=== PATIENT | male | born 1950 | race Caucasian/White ===

== ENCOUNTER 2024-06-30 08:40 | Inpatient (IN) | payer MEDICARE, SELFPAY ==
[2024-06-23 08:41] VITALS: BMI 23.2
[2024-06-30] VITALS (12 sets, daily range): BP systolic 97–168; BP diastolic 53–89; PULSE 65–81; RESP 11–26; TEMP 36.2–36.9; O2SAT 97–100; BMI 22.0
--- NOTE | 2024-06-30 06:00 | DI.RAD.S_ITS ---
PROCEDURE: XR KNEE RT 1TO2V INDICATIONS: TKA TECHNIQUE: 2 view(s) of the knee acquired. COMPARISON: [facility] [place], CR, XR KNEE 4+ VIEWS RIGHT, 02/27/2024, 10:37. FINDINGS: Bones: Patient is status post knee joint arthroplasty. Hardware components are in expected positions. Visualized bony structures are intact. Soft tissues: Overlying postoperative changes are noted. IMPRESSION: Expected immediate postoperative appearance of right TKA. Dictated by: Jayce Olsen [facility] Interpreted: Min Oropeza MD on 07/01/2024 at 9:50 Approved by: Min Oropeza M.D. on 07/08/2024 at 12:56
[2024-06-30] MEDS: ACETAMINOPHEN 325 MG TABLET 975 MG PO (09:29)
[2024-06-30] MEDS: CELECOXIB 200 MG CAPSULE PO (09:29)
[2024-06-30] MEDS: LACTATED RINGERS 1,000 ML 42 ML IV ×2 (09:30→15:40)
[2024-06-30] MEDS: VANCOMYCIN 1,000 MG/200 ML PIGGYBACK 200 MG IV (10:26)
--- NOTE | 2024-06-30 11:20 | PM.PREOP ---
Pre-operative Note Interval Note History & Physical reviewed/Exam performed by Physician: Yes Changes to H&P: No
--- NOTE | 2024-06-30 11:20 | PM.OP.1 ---
Operative Date/Time/Diagnoses Date of procedure: 06/30/24 Time of procedure: 11:45 Pre-op diagnosis: Right knee medial compartment loosening and progressive osteoarthritis of the lateral compartment of the right knee and patellofemoral joint Post-op diagnosis: same Procedure & Clinicians Procedure: Right total knee revision unicompartmental total knee arthroplasty Same procedure as scheduled: Yes Indications: The patient has a history of a right knee medial compartment arthroplasty. He notes it worked well for a while but now he is got progressive osteoarthritic symptoms in the lateral compartment. He did not have wound healing problems. Currently he Has progressively worsening right knee pain with radiographic changes consistent with arthritis and possible early loosening of his medial unicompartment replacement. Non-operative management has failed and the patient has requested total knee replacement. The risks, benefits and alternatives to surgery were discussed with the patient prior to proceeding. Risks discussed included, but were not limited to, failure to relieve pain, stiffness, infection, nerve damage, deep venous thrombosis, pulmonary embolism, stroke, coma, heart attack, permanent paralysis and , as well as the potential need for eventual revision of the prosthetic. Surgeon: Nette Pacheco Supervisor Intermediates: Fahad Alarcon Anesthesia Type: General, Spinal and Peripheral nerve block Operative Notes Findings: Severe right knee OA, some polyethylene wear, no evidence of infection, mild femoral loosening, [id number] synovitis Closure Type: primary Specimen(s): other (PCR and 3 intraoperative cultures tibia, femur, and synovium) Prosthetic devices, grafts, tissues, transplants, or devices: [employer] journey BCS 2 size 5 femur, size 4 tibia, +9 poly, 35 oval patella Estimated Blood Loss (mL): 250 Blood products transfused: none Tourniquet time (min): 105 Procedure in detail: The patient was seen in the pre-operative area, where the patient identified the right knee as the operative site and this was marked with my initials. The patient received pre-operative antibiotics, and was taken to the operating room and placed on the operative table in the supine position. After satisfactory anesthesia, a bobbin handler out was performed. The right leg was encircled with a tourniquet about the proximal thigh, and the leg was prepared from the toes to the tourniquet with ChloroPrep in the usual fashion and draped through sterile drapes. The leg was elevated and exsanguinated with Eschmark bandage and the tourniquet inflated to [250] mmHg pressure. A PA was used during the procedure and was essential for intraoperative retraction and safe implantation of the components. I also sent cultures and PCR from the synovium, under the tibia, and under the femoral component. The knee was approached through an approximately 18 cm incision centered over the patella and carried into the knee through a medial parapatellar arthrotomy. Portion of the medial and lateral meniscus was resected. Soft tissue was carefully mobilized around the patella the patella was measured with a caliper. Bone was resected from the patella and the patellar height was reconstituted with up an appropriate sized patellar component. A cover was then placed on the patella. A small amount of additional medial scar tissue and lateral meniscus was resected. The unicompartment knee replacement was mobilized and loosened some of the combination of a saw and multiple osteotomes. Cori navigation pins were then placed in the femur and the tibia. The knee was meticulously mapped and plan was taken for revision of the unicompartmental total knee arthroplasty. We specifically placed the patient through a range of motion and stressed the knee in order to optimize range of motion and stability. Once the plan had been completely developed the unicompartment tibial and femoral components were removed. Unfortunately when the components were being removed the tibial tracker loosened. We attempted to replace the tibial tracker but were unsuccessful in getting it adequate. We subsequently used our plan for the distal femoral resection. There was minimal bone loss. The Cori bur was used to resect the lateral residual bone some intercondylar bone and I specifically checked the medial side there was not a significant defect in the medial femoral condyle. On the lateral side, It looked like an appropriate distal femoral cut and the cut was made without difficulty. The rotation was assessed and the appropriate size femoral guide was placed on the distal femur and finishing cuts were made. There was no evidence of notching. The anterior, posterior and chamfer cuts were then made. The posterior osteophytes and soft tissues were then removed. The posterior capsule was injected with part of a mixture of 60 ml 0.25% Marcaine mixed with 20 ml Exparel for post operative pain control. The remainder of this mixture was injected into the capsule and subcutaneous tissues during cement curing. A clean-up cut was made across the tibia. I used manual instruments for the tibial cut. I meticulously checked the surface of the bone there was a minor gap in the medial aspect but I did not think I needed to resect additional tibial bone. The rotation was assessed. The patient was placed in extension residual medial and lateral meniscus as well as any residual bone was carefully resected. [No] additional tibia was resected. Hemostasis was achieved especially posteriorly. Additional local was injected into the posterior capsule. The extension gap was assessed. The femoral component was trial was placed and the notch was finished. Trial tibial and femoral components were then placed and the knee placed through a range of motion. Range of motion was [0-130], with good stability throughout the range. I put the tourniquet up for 1 hour initially and then put the tourniquet down for about 55 minutes and then reinflated it for about 40 minutes. The trials were then removed, and the tibia was finished. Short stem was placed on the tibia after carefully reaming the canal in order to optimize stability of the tibial component. The bone was prepared with pulsatile lavage, and dried with a sponge. Cement was applied and the final prosthetics placed. Excess cement was removed during and after cement curing. A brief Betadine soak was performed. After confirming there was no extruded cement posteriorly, the final tibial insert was placed. The knee was copiously irrigated and the tourniquet deflated. Hemostasis was obtained with the [Aquamantys system]. A drain was placed and brought out superolaterally. The capsule was closed with interrupted # 1 Vicryl suture. The subcutaneous layer was closed with barbed sutures, and the skin with a running 3-0 V-Lock suture and Surgical glue. An Aquacel Ag dressing was applied and the patient was taken to recovery having tolerated the procedure well. Complications: none Post-operative Condition: stable Disposition: Acute Care Plan for aftercare: The patient will be maintained on a standard total knee replacement protocol with weight bearing as tolerated. The patient will receive aspirin and sequential compression devices for DVT prophylaxis. The patient will be discharged home when safe for the home environment.
[2024-06-30] MEDS: CEFAZOLIN 2 GM/100 ML PREMIX 100 ML IV ×2 (11:47→19:59)
[2024-06-30] MEDS: TRANEXAMIC ACID 1,000 MG VIAL 2000 MG INJ ×2 (11:51→14:43)
--- NOTE | 2024-06-30 12:22 | SUR.OPER ---
Supine on padded OR bed. Pillow under head, arms secured on padded armboards <90 degree abduction. Safety belt across torso. Non-operative leg secured with tape over blanket over lower leg. Operative leg secured in DeMayo/Luis Alberto/Nathe positioner. Foam padded brace at thigh of operative leg.
[2024-06-30] MEDS: BUPIVACAINE 0.25% (PF) 60 ML, EPINEPHrine 0.3 MG INJ (14:40)
[2024-06-30] MEDS: BUPIVACAINE LIPOSOME 266 MG/20 ML VIAL INJ (14:40)
[2024-06-30] MEDS: hydrOXYzine HCL 25 MG TABLET PO (15:36)
[2024-06-30] MEDS: OXYCODONE IR 5 MG TABLET PO ×2 (15:37→16:09)
--- NOTE | 2024-06-30 16:01 | SUR.PHASEI ---
1551 Pt transfered to Room 204 by Lewis CALLAHAN with 2 white belongings bags.
[2024-06-30] MEDS: LACTATED RINGERS 1,000 ML 100 ML IV ×2 (16:10→22:37)
[2024-06-30] MEDS: ACETAMINOPHEN 325 MG TABLET 650 MG PO ×2 (16:10→22:37)
--- NOTE | 2024-06-30 16:12 | OT.IPNOTE ---
Pt just arrived to the floor from surgery, to check on pt tomorrow for OT eval.
[2024-06-30] MEDS: IBUPROFEN 400 MG TABLET PO ×2 (17:06→22:43)
--- NOTE | 2024-06-30 17:22 | PC.NURSE ---
Patient arrived to room 204 at 1600. He is A&OX4, VSS, afebrile on RA. R Knee with VASILE wrap c/d/i. He states full sensation to BLE's. He reports pain level 7/10 this evening, medicated with PRN PO medications. He tolerates dinner well w/o n/v. IVF LR at 100ml/hr, SCD's, RT teaching IS use, admission assessment completed, bed alarm on, call light in reach, urinal at bedside,POST OP VS, continuous monitoring and continuous pulse ox. He is due to void at 2000 this evening.
[2024-06-30] MEDS: ASPIRIN EC 81 MG TABLET PO (20:06)
[2024-06-30] MEDS: DOCUSATE 100 MG CAPSULE PO (20:06)
[2024-07-01 01:00] VITALS: BP 139/80; PULSE 67; RESP 16; TEMP 36.3; O2SAT 97
[2024-07-01] MEDS: OXYCODONE IR 5 MG TABLET PO (02:29)
[2024-07-01] MEDS: CEFAZOLIN 2 GM/100 ML PREMIX 100 ML IV (04:09)
[2024-07-01] MEDS: ACETAMINOPHEN 325 MG TABLET 650 MG PO (06:22)
[2024-07-01] MEDS: IBUPROFEN 400 MG TABLET PO (06:22)
[2024-07-01 06:24] LABS: Hematocrit 34.9 % (41-53); Hemoglobin 12.2 g/dL (13.5-17.5)
--- NOTE | 2024-07-01 07:00 | P.DS_ITS ---
History of Present Illness History of Present Illness Date Patient Seen: 07/01/24 Time Patient Seen: 07:00 Chief complaint: Right TKA Narrative: Operative Date/Time/Diagnoses Date of procedure: 06/30/24 Time of procedure: 11:45 Pre-op diagnosis: Right knee medial compartment loosening and progressive osteoarthritis of the lateral compartment of the right knee and patellofemoral joint Post-op diagnosis: same Procedure & Clinicians Procedure: Right total knee revision unicompartmental total knee arthroplasty Same procedure as scheduled: Yes Indications: The patient has a history of a right knee medial compartment arthroplasty. He notes it worked well for a while but now he is got progressive osteoarthritic symptoms in the lateral compartment. He did not have wound healing problems. Currently he Has progressively worsening right knee pain with radiographic changes consistent with arthritis and possible early loosening of his medial unicompartment replacement. Non-operative management has failed and the patient has requested total knee replacement. The risks, benefits and alternatives to surgery were discussed with the patient prior to proceeding. Risks discussed included, but were not limited to, failure to relieve pain, stiffness, infection, nerve damage, deep venous thrombosis, pulmonary embolism, stroke, coma, heart attack, permanent paralysis and , as well as the potential need for eventual revision of the prosthetic. Surgeon: Nette Pacheco Extracorporeal Circulation Specialist: Fahad Alarcon Anesthesia Type: General, Spinal and Peripheral nerve block Operative Notes Findings: Severe right knee OA, some polyethylene wear, no evidence of infection, mild femoral loosening, [id number]-nj-zurreazk synovitis Closure Type: primary Specimen(s): other (PCR and 3 intraoperative cultures tibia, femur, and synovium) Prosthetic devices, grafts, tissues, transplants, or devices: [employer] BCS 2 size 5 femur, size 4 tibia, +9 poly, 35 oval patella Estimated Blood Loss (mL): 250 Blood products transfused: none Tourniquet time (min): 105 Discharge Providers Provider Date of admission: 06/30/24 08:40 Discharge Date: 07/01/24 Primary care physician: Shirley Castaneda PA-C Consults: 06/23/24 09:28 Consult to Anesthesiology Routine Comment: Consulting Provider: Anesthesiologist Reason for consultation: Surgeon request - cardiac. 06/30/24 06:00 Consult to Anesthesiology Routine Comment: Consulting Provider: Anesthesiologist Reason for consultation: Regional block for post operative pain control 06/30/24 15:49 Consult to Discharge Planning Routine Comment: Consult to Occupational Therapy Evaluate & Treat Comment: Physician Instructions: Evaluate and treat Consult to Physical Therapy Evaluate & Treat Comment: Physician Instructions: postop TKA protocol Discharge provider: Aliyah Haskins PA-C Summary Hospital Course Discharge Diagnosis: Right knee medial compartment loosening and progressive osteoarthritis of the lateral compartment of the right knee and patellofemoral joint, s/p Right total knee revision unicompartmental total knee arthroplasty Hospital Course: Mr Man'james hospital course was unremarkable. On the morning of POD# 1, he was feeling well and wanted to go home. He had not yet worked w/ PT but he had been OOB multiple times. He was eating and voiding without difficulty and his pain was well-controlled with oral medication. Exam Vital Signs (past 8 hours): - 07/01/24 01:00 Temperature 97.4 F L Pulse Rate 67 Respiratory Rate 16 Blood Pressure 139/80 Pulse Oximetry 97 Oxygen Flow Rate 0 Oxygen Delivery Method Room Air Oxygen Flow Rate 0 Narrative Exam Narrative: 5/5 strength in hip flexors, quadriceps, hamstrings, PF, DF, EHL on right. Sensation to light touch intact throughout RLE. Calf soft and compressible. VASILE over Aquacel is CDI. Objective Labs 07/01/24 06:00 Labs: Laboratory Results - last 24 hr 07/01/24 06:00 Hgb 12.2 L Hct 34.9 L PFSH Medical History (Updated 06/22/24 @ 14:52 by Georgiana Vizcarra RN) Normal cardiac ejection fraction (10/2020) Aortic aneurysm (10/2020) Esophageal dilatation (11/14/21) PVCs (premature ventricular contractions) Palpitations HTN (hypertension) GERD (gastroesophageal reflux disease) Elevated PSA Asthma Surgical History (Updated 06/23/24 @ 09:29 by Georgiana Vizcarra, RN) Status post right partial knee replacement S/P arthroscopic partial medial meniscectomy Social History household members: spouse Smoking Status: Current every day smoker alcohol intake: current Discharge Assessment & Plan Assessment and Plan Assessment: Right knee medial compartment loosening and progressive osteoarthritis of the lateral compartment of the right knee and patellofemoral joint, s/p Right total knee revision unicompartmental total knee arthroplasty Plan of Treatment: Discharge home, multimodal pain control, ASA 81mg BID for VTE prophylaxis, outpt PT, f/u in office as scheduled. Discharge Plan Discharge Plan Patient Disposition: Home Discharge orders & Medications Prescriptions: Continued lisinopril 10 mg Tablet 10 mg PO DAILY metoprolol succinate 25 mg Tablet Extended Release 24 Hr 25 mg PO DAILY albuterol sulfate 90 mcg/actuation Hfa Aerosol Inhaler 2 puff INHALATION Q4H PRN (Reason: asthma) cholecalciferol (vitamin D3) [Vitamin D3] 125 mcg (5,000 unit) Tablet 125 mcg PO DAILY apple cider vinegar 600 mg Capsule 1,200 mg PO DAILY ibuprofen 200 mg Tablet 400 mg PO QPM PRN (Reason: pain and swelling.) Follow up/Referrals: Shirley Castaneda PA-C [Primary Care Provider] - Nette Pacheco MD [Physician] - 07/10/24 11:00 am (Appt:07/10 @ 11:00with Magda best @ [facility] [place] [facility] Diet/Activity/Treatments Diet: Diet as Tolerated Activity: Weightbearing as tolerated. Walk frequently! Cold/Heat Therapy: Ice to knee as needed for pain. Skin/Wound/Dressing Care Report to your healthcare provider any signs of infection, such as:: chills, fever, night sweats, unusual drainage and unusual redness Dressing: May remove VASILE wrap and shower on 07/03/2024. Leave dressing in place until follow up in office. No bathing or otherwise soaking incision. Call the office if the dressing becomes saturated inside. Visit Report/Discharge Packet Instructions: DI for Knee Replacement, DI for Prescription Opioid Use Stand Alone Forms: Patient Portal/API, Stroke Signs & Symptoms, Surgery Discharge Discharge Data Primary Care Provider: Shirley Castaneda
[2024-07-01 08:00] VITALS: BP 153/84; PULSE 67; RESP 16; TEMP 36.8; O2SAT 99
[2024-07-01 09:02] VITALS: BP 153/84
[2024-07-01] MEDS: lisinopriL 10 MG TABLET PO (09:02)
[2024-07-01] MEDS: CHOLECALCIFEROL (VITAMIN D3) 5,000 UNIT TABLET 5000 UNIT PO (09:02)
[2024-07-01 09:03] VITALS: BP 153/84
[2024-07-01] MEDS: METOPROLOL ER 25 MG TABLET PO (09:03)
[2024-07-01] MEDS: SODIUM CHLORIDE 0.9% FLUSH 10 ML IV (09:03)
[2024-07-01] MEDS: DOCUSATE 100 MG CAPSULE PO (09:03)
[2024-07-01] MEDS: ASPIRIN EC 81 MG TABLET PO (09:03)
--- NOTE | 2024-07-01 09:23 | OT.IP.EVAL ---
Current Diagnoses Unilateral primary osteoarthritis, right knee (06/30/24) Presence of right artificial knee joint (06/30/24) Surgery Performed Operation Date: 06/30/24 10:45 Actual Procedures p Total Knee Arthroplasty Revision - Robot uni to total(Right) - Nette Pacheco MD Past Medical History (Last Updated 06/22/24 @ 14:52 by Georgiana Vizcarra, RN) Aortic aneurysm (10/2020) Asthma Elevated PSA Esophageal dilatation (11/14/21) GERD (gastroesophageal reflux disease) HTN (hypertension) Normal cardiac ejection fraction (10/2020) Palpitations PVCs (premature ventricular contractions) Surgical History (Last Updated 06/23/24 @ 09:29 by Georgiana Vizcarra, RN) S/P arthroscopic partial medial meniscectomy Status post right partial knee replacement Occupational Therapy Inpatient Evaluation/Re-Eval M1 PT/OT-IP Prior Functional Status Start: 07/01/24 09:27 Freq: NEEDED Status: Active Protocol: Document 07/01/24 09:27 [facility] (Rec: 07/01/24 09:37 [facility] [id number]) Medical Review Prior Functional Status Medical History Reviewed Yes Communication I Mobility and Gait I but had pain. Activities of Daily Living and IADL's I but had pain with ADl and IADL needs. 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 Social History Household Members spouse Living Arrangements House Number of Floors (Floors) One Floor Number of Stairs To Enter/Railing? 7 steps with bilateral rails from the garage. Home Environment Standard Height Toilet,Walk in Shower,Bidet Home Equipment Front Wheel Walker,Straight Cane,Grab Bars In Shower Additional Social History Comment Pt states has a shower chair but not sure if it has a back on it. M2 OT-IP Current Condition Start: 07/01/24 09:27 Freq: Status: Active Protocol: Document 07/01/24 09:27 [facility] (Rec: 07/01/24 09:37 [facility] [id number]) Occupational Therapy Current Condition Current Condition Evaluation Date 07/01/24 Treatment Diagnosis S/P Revision R TKA Diagnosis Onset Date 06/30/24 M3 OT- IP Subjective and Pain Start: 07/01/24 09:27 Freq: Status: Active Protocol: Document 07/01/24 09:27 [facility] (Rec: 07/01/24 09:37 [facility] [id number]) OT- Subjective Occupational Therapy Visit Type Type Initial Evaluation Visit Start Time 08:55 Visit Stop Time 09:23 Occupational Therapy Visit Comments Patient Comments Pt not wanting to shower but agreed to get dressed. Patient/Caregiver Goals TO go home. OT Pain Assessment Pain When Pain Assessed At Rest Pain Present Pain Present Pain Reported Location Right knee Intensity 3 Scale Used Numeric (0 - 10) M4 OT- IP ADL's Start: 07/01/24 09:27 Freq: Status: Active Protocol: Document 07/01/24 09:27 [facility] (Rec: 07/01/24 09:37 [facility] [id number]) OT GMA-Hfie-Vabsrtr General Evaluation Self-Feeding Ability Independent OT ADL-Grooming Comments OT Grooming Comments Pt refused. OT ADL-Oral Care Comments Oral Care Comments Pt states to just do at home. OT ADL-Dressing General Eval Upper Body Dressing Ability Independent Lower Body Dressing Ability Standby Assistance Comments OT Dressing Comments Educated to tamia the RLE first and take out last and to be mindful not to twist his knee. Best to lean forwards to tamia /doff clothing over his RLE. OT ADL-Toileting General Evaluation Toileting Ability Standby Assistance Comments OT Toileting Comments Educated pt to be mindful of his RLE positioning during ADL needs. OT ADL-Bathing Comments OT Bathing Comments Pt would benefit from a hand held shower spray. Spoke of care for dressing/bandage for showering needs. M5 OT- IP IADL's Start: 07/01/24 09:27 Freq: Status: Active Protocol: Document 07/01/24 09:27 [facility] (Rec: 07/01/24 09:37 [facility] [id number]) OT-Instrumental Activities of Daily Living Home Safety Awareness Awareness of Need for Assistance at Home Good Awareness Ability to Problem Solve Emergency Able to Problem Solve Situations Home Safety Comments Pt's to be able to assist pt as needed. Medication Management Medication Management No Deficits Identified Money Management Money Management No Deficits Identified Meal Preparation Meal Preparation Caregiver Provides Assist Sales Assistant Sales Assistant Caregiver Provides Assist M6 OT- IP Functional Cognition Start: 07/01/24 09:27 Freq: Status: Active Protocol: Document 07/01/24 09:27 [facility] (Rec: 07/01/24 09:37 [facility] [id number]) Cognitive Factors Limiting Selfcare Function Cognitive Ability Level of Alertness Alert Patient Orientation Name,Age,Birthday,Month,Date, Year,Day of Week,Place, Situation Attention Span Ability Capable of Focused Attention, Capable of Sustained Attention Ability to Follow Commands Able to Follow Multi-Step Commands Safety Awareness Underestimates Need for Assistance Cognitive Comments Cognitive Assessment Comments Pt needing vc to keep the FWW in front of him. Pt is a little impulsive at times. Educated to push up from the bed with at least one hand. OT- Vision and Hearing OT- Hearing Assessment OT- Hearing Assessment WFL OT- Vision Assessment Visual Acuity Glasses All The Time Visual Attentiveness WFL Occular Pursuits WFL M7 OT- IP Mobility and Balance Start: 07/01/24 09:27 Freq: Status: Active Protocol: Document 07/01/24:27 [facility] (Rec: 07/01/24 09:37 [facility] [id number]) OT-Transfer Assessment Sit to and From Stand Sit to and from Stand Standby Assistance Transfers Transfer Ability Standby Assistance Technique Transfer Destination Bed,Chair,Toilet Transfer Technique Stand Step Pivot Devices Transfer Assistive Devices None,Front Wheeled Walker Comments Mobility Comments Distant SBA for all mobility needs in the room. Mainly just safety reminders to keep the FWW in front of him. OT- Balance Assessment Sitting Balance and Reactions Static Sitting Balance Ability Normal Dynamic Sitting Balance Ability Normal Standing Balance and Reactions Static Standing Balance Ability Good Dynamic Standing Balance Ability Fair M8 OT- IP Objective Assessments Start: 07/01/24 09:27 Freq: Status: Active Protocol: Document 07/01/24 09:27 [facility] (Rec: 07/01/24 09:37 [facility] [id number]) OT Gross Range of Motion Upper Extremity Range of Motion Assessment Within Functional Limits OT Strength Upper Extremity Strength Assessment Within Functional Limits Comments Strength Comments WFL for needs. M9 OT- IP Assessment and Plan Start: 07/01/24 09:27 Freq: Status: Active Protocol: Document 07/01/24:27 [facility] (Rec: 07/01/24 09:37 [facility] [id number]) OT Summary Assessment and Plan Potential Rehabilitation Potential Excellent Analytic Complexity at Evaluation Low Summary OT Impairments Pain,Functional Mobility, Toileting,Bathing Progress Towards Goals Progressing Toward Goals Assessment Summary Pt low complexity and main barriers are steps,pain, and will need assist for showering needs. Pt to go home with assist when medically stable and go to outpt PT. Goals Grooming Goal Independent Dressing Goal Independent Toileting Goal Independent Bathing Goal Standby Assistance Toilet Transfer Goal Independent Shower Transfer Goal Independent Days to Meet Goals 3 Frequency of Treatment Frequency Of Treatment Once a Day Treatment Plan OT Treatment Plan ADL Training,Functional Mobility,Patient/Family Education,Discharge Planning Discharge Recommendations OT Discharge Recommendations Home with Assistance, Outpatient PT Transportation Needs at Discharge Private Vehicle
--- NOTE | 2024-07-01 09:25 | CM.DANOTE ---
Initial DCP Assessment Note Pt is a 74 yo male, resident of [facility], now POD#1 from Rt knee surgery by Dr Pacheco PCP: Shirley Castaneda Payer: Jatinder VANN Reviewed chart, metw patient to review discharge plan. Therapy has cleared pt for return home w/family to assist and pt has planned for home, DC order from Ortho has already been initiated this morning. No barriers identified at this time to patient's safe discharge home w/family to assist; close outpatient f/u recommended. CM team will plan to follow clinical course closely in case any DC needs or concerns arise. JANNETH Salinas Discharge Planning/Care Management No CM Discharge Assessment Start: 07/01/24 09:24 Freq: Status: Active Protocol: Document 07/01/24 09:24 GEOFFREY (Rec: 07/01/24 09:25 [id number]) Discharge Planning Assessment Assigned Pneumatic Tester JANNETH Zapata DPOA/Assigned Designee Name Brittany Man - . P [phone] Advance Directives? Yes Advance Directives on File No History Provided By Patient,Medical Record Prior Living Arrangements House Household Members spouse Type of transporation used prior to Drives own vehicle admit Independent with ADL's Yes Is patient alert and oriented? Yes Patient/Family Preference OP PT Therapy Barriers to Discharge No Discharge Plan Home Transportation Arrangement Spouse Referrals Initiated None needed
--- NOTE | 2024-07-01 10:05 | PT.IIE ---
Current Diagnoses Unilateral primary osteoarthritis, right knee (06/30/24) Presence of right artificial knee joint (06/30/24) Surgery Performed Operation Date: 06/30/24 10:45 Actual Procedures p Total Knee Arthroplasty Revision - Robot uni to total(Right) - Nette Pacheco MD Surgical History (Last Updated 06/23/24 @ 09:29 by Georgiana Vizcarra, RN) S/P arthroscopic partial medial meniscectomy Status post right partial knee replacement Medical History (Last Updated 06/22/24 @ 14:52 by Georgiana Vizcarra, RN) Aortic aneurysm (10/2020) Asthma Elevated PSA Esophageal dilatation (11/14/21) GERD (gastroesophageal reflux disease) HTN (hypertension) Normal cardiac ejection fraction (10/2020) Palpitations PVCs (premature ventricular contractions) Physical Therapy Inpatient Evaluation/Re-Eval M1 PT/OT-IP Prior Functional Status Start: 07/01/24 09:27 Freq: NEEDED Status: Discharge Protocol: Document 07/01/24 09:27 [facility] (Rec: 07/01/24 09:37 [facility] [id number]) Medical Review Prior Functional Status Medical History Reviewed Yes Communication I Mobility and Gait I but had pain. Activities of Daily Living and IADL's I but had pain with ADl and IADL needs. 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 Social History Household Members spouse Living Arrangements House Number of Floors (Floors) One Floor Number of Stairs To Enter/Railing? 7 steps with bilateral rails from the garage. Home Environment Standard Height Toilet,Walk in Shower,Bidet Home Equipment Front Wheel Walker,Straight Cane,Grab Bars In Shower Additional Social History Comment Pt states has a shower chair but not sure if it has a back on it. M1 PT/OT-IP Prior Functional Status Start: 07/01/24 12:44 Freq: NEEDED Status: Active Protocol: Document 07/01/24 10:05 AB (Rec: 07/01/24 12:57 AB [id number]) Medical Review Prior Functional Status Medical History Reviewed Yes Communication able to make needs known Mobility and Gait pt stated that he was independent with all mobilities and ambulation without AD Activities of Daily Living and IADL's per OT note: I but had pain with ADl and IADL needs. Social History Household Members spouse Living Arrangements House Number of Floors (Floors) Two Floors Number of Stairs To Enter/Railing? pt stayd on the main level of the house Has7 steps with bilateral rails to enter thouse Home Environment Standard Height Toilet,Walk in Shower,Bidet Home Equipment Front Wheel Walker,Shower Seat without Backrest,Hand Held Shower,Grab Bars In Shower Additional Social History Comment pt has an adjustable bed pt has hurrycane M2 PT-IP Current Condition Start: 07/01/24 12:44 Freq: NEEDED Status: Active Protocol: Document 07/01/24 10:05 AB (Rec: 07/01/24 12:57 AB [id number]) Physical Therapy Current Condition Current Condition Evaluation Date 07/01/24 Treatment Diagnosis s/p R TKA revision; difficulty in walking Onset Date 06/30/24 M3 PT-IP Subjective Start: 07/01/24 12:44 Freq: NEEDED Status: Active Protocol: Document 07/01/24 10:05 AB (Rec: 07/01/24 12:57 AB [id number]) Subjective Physical Therapy Visit Type Type Initial Evaluation Visit Start Time 10:05 Visit Stop Time 10:45 Number of INFORMATION SYSTEMS SECURITY DEVELOPER Visits 0 Physical Therapy Visit Comments Patient Comments agreeable to do PT Therapy Pain Assessment Pain When Pain Assessed At Rest Pain Present Pain Present Pain Reported Location Right knee Intensity 2 Scale Used Numeric (0 - 10) Pain Management Techniques Distraction,Modification of Treatment,Re-positioning M4 PT-IP Mobility and Gait Start: 07/01/24 12:44 Freq: NEEDED Status: Active Protocol: Document 07/01/24 10:05 AB (Rec: 07/01/24 12:57 AB [id number]) PT-Bed Mobility Assessment Supine to Sit Supine to Sit Standby Assistance Sit to Supine Sit to Supine Standby Assistance PT-Transfer Assessment Sit to and From Stand Sit to and from Stand Contact Guard Assistance,1 Person Assistance,Use of Upper Extremities Equipment Transfer Assistive Device Gait Belt,Front Wheeled Walker Transfers Transfer Destination Chair,Toilet Transfer Technique ambulated Transfer Ability Level of Assist Standby Assistance,Contact Guard Assistance,1 Person Assistance,Use of Upper Extremities Comments Mobility Comments pt sitting on the chair. spouse in room. obtained PLOF and home set up. reviewed HEP with pt and spouse. pt completed sit to stand from the chair CGA and ambulated in room ~ 20 ft using fWW CGA. pt sat on EOB. completed bed mobility SBA. pt agreed to do stairs. sit to stand from EOB SBA and ambulated to the stairs using FWW SBA to occasional CGA and cues for safety ~ 125 ft. stair climbing training. educated pt and spouse on how to do stairs. pt completed up /down steps using B rails CGA with PT providing cues. pt repeated againt with spouse assisting and able to assist pt . pt ambulated back to his room using FWW SBA to CGA. pt can be impulsive and needs cues for safety. spouse stated that she is a retired nurse and knows how to use a safety belt. pt sat back on chair max A for controlled descent since pt did not reach back for the chair. spouse was assisting pt and was able to assist pt with sitting down. educated pt with safety again. pt requested to use the toilet. spouse assisted sit to stand CGA and ambulated to the toilet using FWW CGA. Left pt with spouse. spouse and pt without further concerns. Gait Assessment Gait Gait Assistance Required: Standby Assistance,Contact Guard Assist Distance (Feet) 125 Able to Maintain Weight Bearing Status Yes During Gait Assistive Devices Assistive Device Gait Belt,Front Wheeled Walker Orthotic/Prosthetic Devices or Brace: No Gait Deviations General Gait Pattern Antalgic,Decreased Stride Length,Decreased Feet Clearance Factors Limiting Gait Function Factors Limiting Gait Function Decreased Activity Tolerance, Decreased Strength,Difficulty Following Directions,Limited Range of Motion,Pain,Poor Balance,Poor Safety Awareness Stair Climbing Assessment Evaluation Level of Assist On Stairs Contact Guard Assistance Devices Stair Climbing Assistive Devices Left Railing,Right Railing Technique/Endurance Stair Climbing Direction Ascend and Descend Stair Climbing Technique Step to Step Number of Steps Climbed 3 Query Text: Comments Stair Climbing Comments 2 PT-Balance Assessment Sitting Balance and Reactions Static Sitting Balance Ability Normal Dynamic Sitting Balance Ability Good Standing Balance and Reactions Static Standing Balance Ability Fair Dynamic Standing Balance Ability Fair Device Used FWW M5 PT-IP Objective Assessments Start: 07/01/24 12:44 Freq: NEEDED Status: Active Protocol: Document 07/01/24 10:05 AB (Rec: 07/01/24 12:57 AB [id number]) Orientation Orientation/Cognition Level of Alertness Alert Orientation Name Language Function Ability No Deficits Noted Safety Awareness Decreased Safety Awareness Memory Description Short Term Impaired Gross Range of Motion Lower Extremity ROM Assessment Right Impaired Impairments R knee flexion: ~ 90 deg R knee extension: ~ 10 deg less to 0 Strength Lower Extremity Strength Assessment Right Impaired Hip 4/5 Knee 4-/5 Sensation Assessment Sensation Gross Sensation WNL Muscle Tone Muscle Tone WNL Yes M6 PT-IP Treatment Start: 07/01/24 12:44 Freq: NEEDED Status: Active Protocol: Document 07/01/24 10:05 AB (Rec: 07/01/24 12:57 AB [id number]) Physical Therapy Treatment Exercises Exercises Heel Slides Education Education Provided Precautions,Weight Bearing Status,Post-Op Packet,Safety M7 PT-IP Assessment and Plan Start: 07/01/24 12:44 Freq: NEEDED Status: Active Protocol: Document 07/01/24 10:05 AB (Rec: 07/01/24 12:57 AB [id number]) PT Summary Assessment and Plan Potential Rehabilitation Potential Fair Status of Condition at Evaluation Evolving Summary Impairments Pain,ROM,Strength,Balance, Coordination,Sensation,Tone, Cognition,Bed Mobility, Transfers,Gait,Activity Tolerance Assessment Summary pt is a 74 y/o M s/p R TKA revision POD 1. pt requiring SBA to CGA with mobility using FWW and plans to go home and spouse to assist him. caregiver training conducted and spouse was able to assist pt safety. pt has out pt PT set up. pt may go home when medically stable. Goals Bed Mobility Goal Independent Transfer Goal Independent,Front Wheeled Walker Gait Goal Independent,Front Wheel Walker Gait Distance 200 Other Goals up/down 7 steps B rails mod I Days to Meet Goals 5 Frequency of Treatment Frequency Of Treatment Twice a Day Treatment Plan Physical Therapy Treatment Plan Bed Mobility Training,Transfer Training,Gait Training, Therapeutic Exercise,Balance Retraining,Post Op Education, Discharge Planning,Hot or Cold Pack,Neuromuscular Re-ed, Coordination Retraining,Manual Therapy Weight Bearing Status Weight Bearing Status Weight Bear as Tolerated Allowed Weight Bearing Amount (enter % RLE WBAT or #) (%) Recommendations To Nursing Amount of Assist Needed 1 Person Assist Discharge Recommendations PT Discharge Recommendations Home with Assistance, Outpatient PT Transportation Needs at Discharge Private Vehicle
--- NOTE | 2024-07-01 10:57 | PC.NURSE ---
Pt is dressed and ready for discharge home with Spouse. IV has been removed. He has been cleared by PT. Went over d/c instructions with Pt and Spouse-discussed d/c meds, time of last dose, reviewed stroke education, s/s of infection, no driving while on narcotics, do not exceed 3000mg of Tylenol in 24hours, and follow up as directed. Pt denied further questions and was taken out via w/c to pov with Spouse and all belongings.
== END 2024-07-01 11:04 | disposition home or self-care (01) | DRG 467 ==
PROVIDERS: Admitting Provider Orthopaedic Surgery; PCP Student in an Organized Health Care Education/Training Program; Referring Provider Student in an Organized Health Care Education/Training Program; Visit Provider Orthopaedic Surgery
PROC: 0SRC0J9 Replacement of Right Knee Joint with Synthetic Substitute, Cemented, Open Approach (ICD-10-PCS; principal; 2024-06-30 10:45)
DX: M17.11 Unilateral primary osteoarthritis, right knee (principal); T84.032A Mechanical loosening of internal right knee prosthetic joint, initial encounter; T84.062A Wear of articular bearing surface of internal prosthetic right knee joint, initial encounter; M65.961 Unspecified synovitis and tenosynovitis, right lower leg; I10 Essential (primary) hypertension; J45.909 Unspecified asthma, uncomplicated; F17.200 Nicotine dependence, unspecified, uncomplicated; Z96.651 Presence of right artificial knee joint
CPT/HCPCS: 36415; 73560; 85014; 85018; 87070; 87075; 87176; 87205; 87801; 97161; 97165; 97530; 97535; C1776; A9270; C1713; C9290; J0171; J0330; J0690; J1100; J2405; J2704; J3010